=== PATIENT | male | born 1955 | race Caucasian/White ===

== ENCOUNTER 2020-07-06 09:48 | Emergency (ER) | payer OTHER ==
--- NOTE | 2020-07-06 10:38 | ER ---
Nurse's Notes [facility] Name: José Antonio Garcia Age: 64 yrs Sex: Male : 1955 Arrival Date: 07/06/2020 Time: 09:48 Bed 14 Private MD: Nick Sequeira V Diagnosis: Sprain of unspecified site of right knee;Contusion of scalp;Contusion of nose Presentation: 07/06 09:57 Chief complaint: Patient states: R lateral knee pain after playing tennis yesterday. ss Coronavirus screen: Client denies travel out of the [place] in the last 14 days. Ebola Screen: Patient denies exposure to infectious person. Patient denies travel to an Ebola-affected area in the 21 days before illness onset. Initial Sepsis Screen: Does the patient meet any 2 criteria? No. Patient's initial sepsis screen is negative. Does the patient have a suspected source of infection? No. Patient's initial sepsis screen is negative. Risk Assessment: Do you want to hurt yourself or someone else? Patient reports no desire to harm self or others. Onset of symptoms was July 05, 2020. 09:57 Method Of Arrival: Ambulatory 09:57 Acuity: PRINCESS 4 ss Triage Assessment: 11:17 General: Appears Behavior is calm, cooperative, quiet. kg Historical: - Allergies: 10:00 No Known Allergies; ss - Immunization history:: Adult Immunizations up to date. - Social history:: Smoking status: Patient denies any tobacco usage or history of. - Family history:: not pertinent. - Hospitalizations: : No recent hospitalization is reported. Screenin:01 Abuse screen: Denies threats or abuse. Nutritional screening: No deficits noted. kg Tuberculosis screening: No symptoms or risk factors identified. Fall Risk Gait- Impaired (20 pts.). Assessment: 11:06 Pain: Complains of pain in right knee. kg Vital Signs: 09:57 BP 122 / 83; Pulse 72; Resp 16; Temp 98.0(TE); Pulse Ox 99% on R/A; Weight 65.77 kg; ss Height 5 ft. 9 in. (175.26 cm); Pain 7/10; 11:05 BP 98 / 69; kg 09:57 Body Mass Index 21.41 (65.77 kg, 175.26 cm) ss ED Course: 09:48 Patient arrived in ED. am2 09:49 Nick Sequeira MD is Private Physician. am2 10:00 Triage completed. ss 10:00 Arm band placed on right wrist. ss 10:07 Steve Miguel MD is Attending Physician. rn 10:12 Ngoc Pat is Primary Nurse. kg 10:13 ED physician to see patient. kg 11:00 Patient has correct armband on for positive identification. Bed in low position. Call kg light in reach. Side rails up X2. 11:01 No apparent distress. Resting quietly. kg 11:16 No provider procedures requiring assistance completed. Patient did not have IV access kg during this emergency room visit. Administered Medications: No medications were administered Outcome: 10:37 Discharge ordered by . rn 11:16 Discharged to home ambulatory, with family, with significant other. kg 11:16 Condition: stable 11:16 Discharge instructions given to patient, family, Instructed on discharge instructions, follow up and referral plans. Demonstrated understanding of instructions, follow-up care. 11:17 Patient left the ED. kg Signatures: Steve Miguel MD MD rn Smirch, Shelby, RN RN Gina Pizarro am2 Ngoc Pat kg
--- NOTE | 2020-07-06 10:38 | EDPHYS ---
Physician Documentation [facility] Name: José Antonio Garcia Age: 64 yrs Sex: Male : 1955 Arrival Date: 07/06/2020 Time: 09:48 Bed 14 Private MD: Nick Sequeira V ED Physician Steve Miguel HPI: 07/06 10:31 This 64 yrs old Male presents to ER via Ambulatory with complaints of Knee rn Pain. 10:31 The patient presents with an injury, pain. The complaints affect the right knee. Onset: rn The symptoms/episode began/occurred yesterday. Modifying factors: The symptoms are alleviated by elevating leg, remaining still, the symptoms are aggravated by movement, rotation. Associated signs and symptoms: Pertinent negatives numbness, swelling, warmth, weakness. Severity of symptoms: At their worst the symptoms were moderate, in the emergency department the symptoms have improved. The patient has not experienced similar symptoms in the past. Reports playing tennis yesterday, went for overhead hit, landed on right knee with rotation and felt pain, very mild swelling, rested it and already better overnight. Able to walk on it. No bruising. No other injury. NO bony pain. Only hurts now to rotate knee. Also reports got up to use bathroom in the night. when stood up had knee pain, thinks tripped and fell to ground, possible LOC, but no vomiting/focal neuro complaints/vision changes. Not on blood thinners. . Historical: - Allergies: 10:00 No Known Allergies; ss - Immunization history:: Adult Immunizations up to date. - Social history:: Smoking status: Patient denies any tobacco usage or history of. - Family history:: not pertinent. - Hospitalizations: : No recent hospitalization is reported. ROS: 10:31 Constitutional: Negative for fever, chills, and weight loss, Eyes: Negative for injury, rn pain, redness, and discharge, ENT: + contusion to nasal bridge Neck: Negative for injury, pain, and swelling, Cardiovascular: Negative for chest pain, palpitations, and edema, Respiratory: Negative for shortness of breath, cough, wheezing, and pleuritic chest pain, Abdomen/GI: Negative for abdominal pain, nausea, vomiting, diarrhea, and constipation, Back: Negative for injury and pain, MS/Extremity: + right knee pain and injury Skin: Negative for injury, rash, and discoloration, Neuro: Negative for headache, weakness, numbness, tingling, and seizure. Exam: 10:31 Constitutional: This is a well developed, well nourished patient who is awake, alert, rn and in no acute distress. Head/Face: Small abrasion over nasal bridge, no deviation, no nosebleed. + small contusion/abrasion top of scalp, no active bleeding. No depression or crepitus. Eyes: Pupils equal round and reactive to light, extra-ocular motions intact.Periorbital areas with no swelling, redness, or edema. Cardiovascular: Regular rate and rhythm. No pulse deficits. Respiratory: No increased work of breathing, no retractions or nasal flaring. Abdomen/GI: soft, non-tender Skin: Warm, dry with normal turgor. Normal color with no rashes, no lesions, and no evidence of cellulitis. MS/ Extremity: Pulses equal, no cyanosis. Neurovascular intact. Full, normal range of motion. Equal circumference. Only mild pain with rotation, mild tenderness over lateral collateral ligament right knee, no laxity or abnormality when testing ACL/PCL. No bony tenderness. No ecchymosis or swelling. Neuro: Awake and alert, GCS 15, oriented to person, place, time, and situation. Cranial nerves II-XII grossly intact. Motor strength 5/5 in all extremities. Sensory grossly intact. Cerebellar exam normal. Antalgic gait. Vital Signs: 09:57 BP 122 / 83; Pulse 72; Resp 16; Temp 98.0(TE); Pulse Ox 99% on R/A; Weight 65.77 kg; ss Height 5 ft. 9 in. (175.26 cm); Pain 7/10; 11:05 BP 98 / 69; kg 09:57 Body Mass Index 21.41 (65.77 kg, 175.26 cm) ss MDM: 10:07 Patient medically screened. rn 10:31 Differential diagnosis: contusion, sprain, strain. Data reviewed: vital signs, nurses rn notes, and as a result, I will discharge patient. Counseling: I had a detailed discussion with the patient and/or guardian regarding: the historical points, exam findings, and any diagnostic results supporting the discharge/admit diagnosis, the need for outpatient follow up, to return to the emergency department if symptoms worsen or persist or if there are any questions or concerns that arise at home. Special discussion: I discussed with the patient/guardian in detail that at this point there is no indication for admission to the hospital. It is understood, however, that if the symptoms persist or worsen the patient needs to return immediately for re-evaluation. Based on the history and exam findings, there is no indication for further emergent testing or inpatient evaluation. I discussed with the patient/guardian the need to see the orthopedic surgeon for further evaluation of the symptoms. ED course: Recommended ct head/ekg/xray right knee, patient wants to skip imaging for now, feels better without anything, will go home, RICE therapy, and explained to him and return precautions and red flags. . Administered Medications: No medications were administered Disposition: 07/06/20 10:37 Discharged to Home. Impression: Sprain of unspecified site of right knee, Contusion of scalp, Contusion of nose. - Condition is Stable. - Discharge Instructions: Head Injury, Adult, Knee Sprain, RICE for Routine Care of Injuries. - Medication Reconciliation Form, Thank You Letter, Antibiotic Education, Prescription Opioid Use form. - Follow up: Private Physician; When: As needed; Reason: Recheck today's complaints, Re-evaluation by your physician. - Problem is new. - Symptoms have improved. Signatures: Steve Miguel MD MD rn Smirch, Shelby, RN RN ss Graham, Kristen kg Corrections: (The following items were deleted from the chart) 11:17 10:37 07/06/2020 10:37 Discharged to Home. Impression: Sprain of unspecified site of kg right knee; Contusion of scalp; Contusion of nose. Condition is Stable. Forms are Medication Reconciliation Form, Thank You Letter, Antibiotic Education, Prescription Opioid Use. Follow up: Private Physician; When: As needed; Reason: Recheck today's complaints, Re-evaluation by your physician. Problem is new. Symptoms have improved. rn
[2020-07-06 11:22] VITALS: TEMP 98; O2SAT 99
[2020-07-06 11:23] VITALS: BP 98/69
== END 2020-07-06 11:17 | disposition home or self-care (01) ==
LOC: ER 09:48
DX: S83.91XA Sprain of unspecified site of right knee, initial encounter (principal); S00.03XA Contusion of scalp, initial encounter; S00.33XA Contusion of nose, initial encounter; W18.39XA Other fall on same level, initial encounter; Y93.73 Activity, racquet and hand sports; Y92.89 Other specified places as the place of occurrence of the external cause
CPT/HCPCS: 99281